=== PATIENT | male | born 2000 | race Caucasian/White ===

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

== ENCOUNTER 2019-03-28 01:40 | Emergency (ER) | payer BC, MEDICAID ==
[2019-03-28 05:00] VITALS: BP 116/54
== END 2019-03-28 05:02 | disposition left against medical advice (07) ==
LOC: ER 01:40
DX: Z53.21 Procedure and treatment not carried out due to patient leaving prior to being seen by health care provider (principal)